=== PATIENT | female | born 1980 | race Two or more races ===

== ENCOUNTER 2016-10-23 22:29 | Emergency (ER) | payer MEDICAID ==
[~2016-10-23] VITALS: Ht 152.4 cm; Wt 68.0 kg
[2016-10-23 23:42] VITALS: BP 120/93
--- NOTE | 2016-10-24 01:40 | NUR ---
NOT IN LOBBY WHEN CALLED FOR ROOM ASSIGNMENT.
--- NOTE | 2016-10-24 02:08 | NUR ---
CALLED AGAIN; NOT IN LOBBY. INFORMED "PT LEFT"
== END 2016-10-24 02:09 | disposition left against medical advice (07) ==
LOC: ER 22:32
DX: Z53.21 Procedure and treatment not carried out due to patient leaving prior to being seen by health care provider (principal)
CPT/HCPCS: A4606; Z7610